=== PATIENT | female | born 1975 | race African-American/Black ===

== ENCOUNTER 2021-06-04 19:59 | Emergency (ER) | payer MEDICAID ==
[~2021-06-04] VITALS: Ht 175.3 cm; Wt 114.0 kg
[2021-06-04] MEDS ORDERED: MORPHINE SULFATE 4 MG/ML CPJ (NOT FOR IM USE) IV ONE (22:45)
[2021-06-04] MEDS ORDERED: LORAZEPAM 1MG TABLET PO ONE (23:45)
[2021-06-04] MEDS ORDERED: HYDROMORPHONE HCL/PF 2MG/ML CPJ IV ONE (23:45)
[2021-06-05] MEDS ORDERED: CYCL10TA7 MT (00:14)
[2021-06-05] MEDS ORDERED: IBUP-2029 MT (00:14)
[2021-06-05] MEDS ORDERED: HYDR-4009 MT (01:08)
[2021-06-05 01:16] VITALS: BP 132/83
== END 2021-06-05 01:36 | disposition home or self-care (01) ==
LOC: ER 19:59
DX: S82.201A Unspecified fracture of shaft of right tibia, initial encounter for closed fracture (principal); F12.10 Cannabis abuse, uncomplicated; J45.909 Unspecified asthma, uncomplicated; S82.401A Unspecified fracture of shaft of right fibula, initial encounter for closed fracture; V29.9XXA Motorcycle rider (driver) (passenger) injured in unspecified traffic accident, initial encounter; Y93.89 Activity, other specified; Y92.89 Other specified places as the place of occurrence of the external cause; Y99.8 Other external cause status
CPT/HCPCS: 29505; 73590; 73610; 96374; 96375; 99284; J1170; J2270